=== PATIENT | female | born 1995 | race Caucasian/White ===

== ENCOUNTER 2018-12-25 19:02 | Emergency (ER) | payer OTHER ==
[~2018-12-25] VITALS: Ht 162.6 cm; Wt 68.0 kg
[2018-12-25 19:02] VITALS: BP 143/84
[2018-12-25] MEDS ORDERED: LIDOCAINE 2% 20 ML VIAL. IJ STA (19:11)
--- NOTE | 2018-12-25 19:25 | PHYS DOC ---
Past History Past Medical History: Other Past Surgical History: Other Alcohol Use: Occasionally Drug Use: None Adult General Chief Complaint Chief Complaint: LACERATION/AVULSION HPI HPI Patient is a 23 year old female who presents with complaint of laceration at the base of the right thumb. Patient states this happen approximately 1 hour prior to arrival. The patient states that she is reaching under her car to try to grab her dog when she accidentally cut her thumb on the tailpipe of the vehicle. Bleeding controlled prior to arrival. Patient states she is up-to-date on immunizations. States that she is able to move the thumb normally at this time. Review of Systems Review of Systems Constitutional: Denies fever or chills [] Eyes: Denies change in visual acuity, redness, or eye pain [] HENT: Denies nasal congestion or sore throat [] Respiratory: Denies cough or shortness of breath [] Cardiovascular: Denies chest pain or edema[] GI: Denies abdominal pain, nausea, vomiting, bloody stools or diarrhea [] : Denies dysuria or hematuria [] Musculoskeletal: Laceration to right thumb[] Integument: Denies rash or skin lesions [] Neurologic: Denies headache, focal weakness or sensory changes [] All other systems were reviewed and found to be within normal limits, except as documented in this note. Current Medications Current Medications Current Medications Medications (Trade) Dose Ordered Sig/Omari Start Time Stop Time Status Last Admin Dose Admin Lidocaine HCl 20 ml 1X STAT 12/25/18 19:11 12/25/18 19:12 UNV 12/25/18 19:16 20 ML Physical Exam Physical Exam Constitutional: Well developed, well nourished, no acute distress, non-toxic appearance. [] HENT: Normocephalic, atraumatic, bilateral external ears normal, oropharynx moist, no oral exudates, nose normal. [] Eyes: PERRLA, EOMI, conjunctiva normal, no discharge. [] Neck: Normal range of motion, no tenderness, supple, no stridor. [] Cardiovascular:Heart rate regular rhythm, no murmur [] Lungs & Thorax: Bilateral breath sounds clear to auscultation [] Abdomen: Bowel sounds normal, soft, no tenderness, no masses, no pulsatile masses. [] Skin: Warm, dry, no erythema, no rash. [] Back: No tenderness, no CVA tenderness. [] Extremities: 2.5 cm transverse laceration across the volar aspect of base of right thumb, no tenderness, no cyanosis, no clubbing, ROM intact, no edema. [] Neurologic: Alert and oriented X 3, normal motor function, normal sensory function, no focal deficits noted. [] Current Patient Data Vital Signs Vital Signs Date Time Temp Pulse Resp B/P (MAP) Pulse Ox O2 Delivery O2 Flow Rate FiO2 12/25/18 19:02 98.9 99 20 100 Room Air Lab Results Not performed EKG EKG Not performed[] Radiology/Procedures Radiology/Procedures Indication: Thumb laceration[] Procedure: The patient was placed in the appropriate position and anesthesia around the laceration was achieved with injection of lidocaine 2%. The area was then cleansed with high-pressure saline and prepped with Betadine. The laceration was closed using simple interrupted 4-0 nylon sutures. The wound area was then dressed with gauze. Total repaired wound length: 2.5 cm. Other Items: Total suture count: 4 The patient tolerated the procedure without difficulty. Complications: None.[] Course & Med Decision Making Course & Med Decision Making Pertinent Labs and Imaging studies reviewed. (See chart for details) Laceration repaired as outlined in procedure note. Advised follow-up with primary doctor in 10-12 days for removal of sutures. Advised return to emergency department for any worsening symptoms. Patient was understanding and in agreement with treatment plan.[] Dragon Disclaimer Dragon Disclaimer This electronic medical record was generated, in whole or in part, using a voice recognition dictation system. Departure Departure: Impression: Primary Impression: Thumb laceration Disposition: 01 HOME, SELF-CARE Condition: IMPROVED Referrals: ANA CENTENO MD (PCP) Patient Instructions: Laceration Care, Adult Additional Instructions: Follow-up with your primary doctor in 10-12 days for removal of your stitches. Return to the emergency department for any worsening symptoms. Problem Qualifiers Primary Impression: Thumb laceration Encounter type: initial encounter Damage to nail status: without damage Foreign body presence: without foreign body Laterality: right Qualified Codes: S61.011A - Laceration without foreign body of right thumb without damage to nail, initial encounter ARGENIS JUAN MD December 25, 2018 19:25
[2018-12-25] MEDS ORDERED: LIDOCAINE 1% Multi-Dose 20 ML VIAL. ONE (20:05)
== END 2018-12-25 21:14 | disposition home or self-care (01) ==
LOC: ER 19:02
DX: S61.011A Laceration without foreign body of right thumb without damage to nail, initial encounter (principal); W26.8XXA Contact with other sharp object(s), not elsewhere classified, initial encounter; Y93.89 Activity, other specified; Y92.89 Other specified places as the place of occurrence of the external cause; Y99.8 Other external cause status
CPT/HCPCS: 12001; 99283; J2001